=== PATIENT | male | born 2000 | race Caucasian/White ===

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

== ENCOUNTER 2022-04-12 17:28 | Inpatient (IN) | payer BC ==
[~2022-04-12] VITALS: Ht 175.3 cm; Wt 63.6 kg
[2022-04-12 18:25] LABS: HEMATOCRIT 43.2 % (42.0-52.0); HEMOGLOBIN 14.8 g/dl (13.5-17.5); MEAN CORPUSCULAR HEMOGLOBIN 29.4 pg (27.0-33.0); MEAN CORPUSCULAR HGB CONC 34.3 g/dl (32.0-36.5); MEAN CORPUSCULAR VOLUME 85.9 fl (80.0-96.0); PLATELET COUNT, AUTOMATED 256 10^3/uL (150-450); RED BLOOD COUNT 5.03 10^6/uL (4.30-6.10); WHITE BLOOD COUNT 8.8 10^3/uL (4.0-10.0)
[2022-04-12 19:01] LABS: AMPHETAMINES LEVEL URINE NEGATIVE (NEGATIVE); BARBITURATES URINE NEGATIVE (NEGATIVE); BENZODIAZEPINES URINE NEGATIVE (NEGATIVE); CANNABINOIDS URINE POSITIVE (NEGATIVE); COCAINE METABOLITE URINE NEGATIVE (NEGATIVE); METHADONE URINE NEGATIVE (NEGATIVE); OPIATES URINE NEGATIVE (NEGATIVE); PHENCYCLIDINE URINE NEGATIVE (NEGATIVE)
[2022-04-12 19:09] LABS: ACETAMINOPHEN LEVEL < 2.0 UG/ML (10.0-30.0); ALBUMIN 4.6 GM/DL (3.2-5.2); ALT/SGPT 18 U/L (12-78); BILIRUBIN,DIRECT 0.3 MG/DL (0.0-0.2); BLOOD UREA NITROGEN 8 MG/DL (7-18); CALCIUM LEVEL 9.6 MG/DL (8.5-10.1); CARBON DIOXIDE LEVEL 26 MEQ/L (21-32); CHLORIDE LEVEL 109 MEQ/L (98-107); CREATININE FOR GFR 0.85 MG/DL (0.70-1.30); ETHYL ALCOHOL (ETHANOL) < 0.003 % (0.000-0.010); GLUCOSE, FASTING 93 MG/DL (70-100); POTASSIUM SERUM 3.8 MEQ/L (3.5-5.1); SALICYLATE LEVEL < 1.7 MG/DL (5.0-30.0); SODIUM LEVEL 143 MEQ/L (136-145); THYROID STIMULATING HORMONE 0.395 uIU/ML (0.463-3.98); TOTAL PROTEIN 7.6 GM/DL (6.4-8.2)
[2022-04-12] MEDS ORDERED: traZODone 50 MG TAB PO PRN (22:15)
[2022-04-12] MEDS ORDERED: MAALOX 30 ML SUSP *UDC PO PRN (22:15)
[2022-04-12] MEDS ORDERED: LORazepam 1 MG TAB PO PRN (22:15)
[2022-04-12] MEDS ORDERED: MOM 30ML SUSPENSION UDC PO PRN (22:15)
[2022-04-12] MEDS ORDERED: ACETAMINOPHEN TAB 650MG DOSE (2X325MG) PO PRN (22:15)
[2022-04-12 23:49] LABS: RSV AMPLIFICATION NEGATIVE (NEGATIVE)
[2022-04-13] MEDS ORDERED: HOME MED LIST COMPLETE! XX SCH
[2022-04-13 06:08] VITALS: BP 116/76
[2022-04-13] MEDS: NICOTINE 14 MG/24 HR TRANSDERMAL TD SCH (10:04)
[2022-04-13 10:21] LABS: FREE T3 3.4 PG/ML (2.9-4.5); FREE T4 0.95 NG/DL (0.78-1.33); THYROID STIMULATING HORMONE 0.468 uIU/ML (0.463-3.98)
[2022-04-13] MEDS: FLUoxetine 20MG CAP PO SCH (11:15)
[2022-04-13 18:06] VITALS: BP 123/74
[2022-04-13] MEDS: CLINDAMYCIN TOP 1% SOLN 60 ML BTL TOP SCH (21:21)
[2022-04-14 06:24] VITALS: BP 139/80
[2022-04-14] MEDS: NICOTINE 14 MG/24 HR TRANSDERMAL TD SCH (08:35)
[2022-04-14] MEDS: FLUoxetine 20MG CAP PO SCH (08:35)
[2022-04-14] MEDS: CLINDAMYCIN TOP 1% SOLN 60 ML BTL TOP SCH ×2 (08:36→21:39)
[2022-04-14] MEDS ORDERED: PROPRANOLOL 10 MG TAB PO PRN (09:15)
[2022-04-14 19:20] VITALS: BP 145/82
[2022-04-15 06:24] VITALS: BP 139/68
[2022-04-15] MEDS: CLINDAMYCIN TOP 1% SOLN 60 ML BTL TOP SCH (08:57)
[2022-04-15] MEDS: FLUoxetine 20MG CAP PO SCH (08:57)
[2022-04-15] MEDS: NICOTINE 14 MG/24 HR TRANSDERMAL TD SCH (08:58)
[2022-04-15] MEDS ORDERED: NICO14PA TD (09:11)
[2022-04-15] MEDS ORDERED: TRAZ-252 PO (09:11)
[2022-04-15] MEDS ORDERED: CLIN1SOL TOP (09:11)
[2022-04-15] MEDS ORDERED: FLUO20CA22 PO (09:11)
== END 2022-04-15 12:08 | disposition home or self-care (01) | DRG 758 ==
LOC: M ED 17:35 → M ED INP 22:14 → M PSY 04-13 00:12
PROVIDERS: ADMIT Student in an Organized Health Care Education/Training Program; ATTEND Student in an Organized Health Care Education/Training Program
DX: F63.9 Impulse disorder, unspecified (principal); F41.9 Anxiety disorder, unspecified; F60.89 Other specific personality disorders; F17.210 Nicotine dependence, cigarettes, uncomplicated; R45.851 Suicidal ideations; Z91.52 Personal history of nonsuicidal self-harm; G43.909 Migraine, unspecified, not intractable, without status migrainosus; Z20.822 Contact with and (suspected) exposure to COVID-19; L70.9 Acne, unspecified